=== PATIENT | male | born 1985 | race Caucasian/White ===

== ENCOUNTER 2020-08-27 18:16 | Emergency (ER) | payer MEDICAID, SELFPAY ==
[2020-08-27 18:39] VITALS: BP 109/53; PULSE 95; RESP 16; TEMP 37.3; O2SAT 96; BMI 23.1
[2020-08-27 21:04] VITALS: BP 000/00; PULSE 0; RESP 0; TEMP -17.7; TEMP 0
--- NOTE | 2020-08-27 21:05 | PC.NURSE ---
tried to call pt back to a room at 2030. I was unable [email or web address] find the pt. I was told by another pt they left.
== END 2020-08-27 21:03 | disposition left against medical advice (07) ==
LOC: ER 18:40 → UTC 18:41
PROVIDERS: Emergency Provider Nurse Practitioner Family
DX: Z53.21 Procedure and treatment not carried out due to patient leaving prior to being seen by health care provider (principal)